=== PATIENT | female | born 1985 | race Caucasian/White ===

== ENCOUNTER → 2018-03-26 | Outpatient (CLI) | payer OTHER ==
[~2018-03-26] MED LIST: COLACE 100100 MG/CAP PO; DICLEGIS; GAS RELIEF80 MG PO; IBU800 M1 PO; MOTRIN 600600 MG/TAB PO; NORCO 325 MG-51 TAB PO; PRENATAL VITA1 UDTAB PO; PRIL40 PO; PROBIOTIC-MAJOR PO; SIMETHICONE80 MG PO; TYLENOL 325MG325 MG PO; TYLENOL 500MG500 MG PO; ZANTAC 150MG T150 MG PO
== END ==
LOC: COL.RAD 09:23
DX: R10.11 Right upper quadrant pain (principal); R10.31 Right lower quadrant pain

== ENCOUNTER 2018-05-21 13:32 | Emergency (ER) | payer OTHER ==
[~2018-05-21] VITALS: Ht 157.5 cm; Wt 61.4 kg
[2018-05-21 13:35] VITALS: BP 142/60; TEMP 97.8
[2018-05-21] MEDS ORDERED: ZOLOFT 50MG50 MG PO (13:41)
[2018-05-21 14:55] VITALS: PULSE 89
== END 2018-05-21 14:54 | disposition home or self-care (01) ==
LOC: COL.ER 13:32
DX: G25.71 Drug induced akathisia (principal); T43.225A Adverse effect of selective serotonin reuptake inhibitors, initial encounter
CPT/HCPCS: J2060

== ENCOUNTER → 2022-04-05 | Outpatient (CLI) | payer BC ==
[~2022-04-05] MED LIST changes: +ZOLOFT 50MG50 MG PO
== END ==
LOC: MC.RAD 13:55
DX: N63.11 Unspecified lump in the right breast, upper outer quadrant (principal)